=== PATIENT | male | born 1980 | race Two or more races ===

== ENCOUNTER 2019-01-09 17:09 | Emergency (ER) | payer MEDICAID, OTHER ==
[~2019-01-09] VITALS: Ht 177.8 cm; Wt 70.3 kg
--- NOTE | 2019-01-09 17:45 | NUR ---
R INDEX FINGER PAIN S/P CATCHING A FAST BASKETBALL. PATIENT A/OX4, BREATHING EVEN AND UNLABORED, KEPT COMFORTABLE. MD AT BEDSIDE FOR EVAL.
[2019-01-09] MEDS ORDERED: IBUPROFEN 600 MG TABLET PO ONE ×2 (17:59→18:00)
--- NOTE | 2019-01-09 18:02 | NUR ---
WAITING FOR XRAY.
--- NOTE | 2019-01-09 18:52 | NUR ---
SPLINT APPLIED TO RIGHT INDEX FINGER. Patient discharged to home in stable condition. Written and verbal after care instructions given. Patient verbalizes understanding of instruction.
[2019-01-09 18:53] VITALS: BP 126/84
== END 2019-01-09 18:53 | disposition home or self-care (01) ==
LOC: ER 17:09
DX: S62.630A Displaced fracture of distal phalanx of right index finger, initial encounter for closed fracture (principal); W21.05XA Struck by basketball, initial encounter; Y93.67 Activity, basketball; Y92.310 Basketball court as the place of occurrence of the external cause; Y99.8 Other external cause status
CPT/HCPCS: 73140-TC

== ENCOUNTER 2022-10-23 14:05 | Emergency (ER) | payer MEDICAID, OTHER ==
[~2022-10-23] VITALS: Ht 177.8 cm; Wt 83.9 kg
[2022-10-23 16:26] VITALS: BP 127/87; TEMP 98.4; O2SAT 98
== END 2022-10-23 16:27 | disposition home or self-care (01) ==
LOC: ER 14:11
DX: S00.03XA Contusion of scalp, initial encounter (principal); F10.129 Alcohol abuse with intoxication, unspecified; Z60.2 Problems related to living alone; W18.30XA Fall on same level, unspecified, initial encounter; Y93.89 Activity, other specified; Y92.89 Other specified places as the place of occurrence of the external cause; Y99.8 Other external cause status; Y90.9 Presence of alcohol in blood, level not specified
CPT/HCPCS: 70450-TC